=== PATIENT | female | born 1960 | race Caucasian/White ===

== ENCOUNTER → 2017-04-09 | Outpatient (CLI) | payer MEDICARE ==
[~2017-04-09] MED LIST: ASPIRIN81 M1 PO; AUGMENTIN 875 M1 TAB PO; DEPAKOTE500 MG PO; DIVALPROEX SOD250 M1 PO; LEVOFLOXACIN500 MG PO; LIPITOR20 MG PO; LISINOPRIL/HCTZ1 TA3 PO; Lopressor25 MG PO; NEURONTIN400 MG PO; NORCO 10-325 T1 EACH PO; NORCO 325 MG-51 TAB PO; PEN-VK500 MG PO; ROBAXIN750 MG PO; SYMBICORT1 AE1 INH; TRAMADOL HCL50 MG PO; TRIMOX500 MG PO; VENTOLIN H0.09 MG/AC INH
== END | disposition home or self-care (01) ==
LOC: CARD 02:06
DX: I25.89 Other forms of chronic ischemic heart disease (principal); R06.02 Shortness of breath

== ENCOUNTER → 2017-10-20 | Outpatient (CLI) | payer MEDICARE ==
[2017-10-20 09:16] LABS: BASO % 0.4 % (0.0-1.0); EOS % 0.9 % (1.0-4.0); HEMATOCRIT 33.9 % (37.0-47.0); HEMOGLOBIN 11.7 g/dl (12.0-16.0); LYMPH # 2.4 10*3/uL (1.3-4.4); LYMPH % 52.3 % (27.0-41.0); MEAN CELL VOLUME 91.4 fl (81.0-99.0); MEAN CORPUSCULAR HGB 31.5 pg (27.0-31.0); MEAN CORPUSCULAR HGB CONC 34.5 g/dl (33.0-37.0); MEAN PLATELET VOLUME 9.7 fl (9.6-12.3); MONO # 0.4 10*3/uL (0.1-1.0); MONO % 8.9 % (3.0-9.0); NEUT # 1.7 10*3/uL (2.3-7.9); NEUT % 37.3 % (47.0-73.0); PLATELET COUNT AUTOMATED 238 10*3/uL (130-400); RED BLOOD COUNT 3.71 10*6/uL (4.10-5.10); RED CELL DISTRI WIDTH 12.7 % (0-14.5); WHITE BLOOD COUNT 4.5 10*3/uL (4.8-10.8)
[2017-10-20 09:33] LABS: BILIRUBIN NEGATIVE (NEGATIVE); BLOOD 2+ (NEGATIVE); CLARITY CLOUDY (CLEAR); COLOR YELLOW (YELLOW); GLUCOSE NEGATIVE (NEGATIVE); KETONE NEGATIVE (NEGATIVE); LEUKO ESTERASE NEGATIVE (NEGATIVE); NITRITE NEGATIVE (NEGATIVE); PH 5.5 (5.0-9.0); UROBILINOGEN 0.2 E.U./dl (0.2-1.0)
[2017-10-20 09:39] LABS: ALBUMIN 4.3 gm/dl (3.1-4.5)
[2017-10-20 09:42] LABS: CREATININE 1.67 mg/dL (0.55-1.02); TOTAL PROTEIN 7.3 gm/dL (6.4-8.2)
[2017-10-20 10:08] LABS: BACTERIA 2+; EPITHELIAL CELLS 15-20
== END | disposition home or self-care (01) ==
LOC: CT 09-08 09:00 → LAB 08:28 → CT 09:00
PROVIDERS: Urology
DX: I70.0 Atherosclerosis of aorta (principal); I10 Essential (primary) hypertension; R31.9 Hematuria, unspecified; Z87.442 Personal history of urinary calculi; Z90.710 Acquired absence of both cervix and uterus; Z90.89 Acquired absence of other organs

== ENCOUNTER → 2017-11-11 | Outpatient (CLI) | payer MEDICARE | END | disposition home or self-care (01) | LOC: LAB 13:15 | DX: R31.9 Hematuria, unspecified (principal) ==

== ENCOUNTER → 2017-11-12 | Outpatient (CLI) | payer MEDICARE ==
[2017-11-12 15:36] LABS: BILIRUBIN NEGATIVE (NEGATIVE); BLOOD 1+ (NEGATIVE); CLARITY CLEAR (CLEAR); COLOR YELLOW (YELLOW); GLUCOSE NEGATIVE (NEGATIVE); KETONE NEGATIVE (NEGATIVE); LEUKO ESTERASE NEGATIVE (NEGATIVE); NITRITE NEGATIVE (NEGATIVE); UROBILINOGEN 0.2 E.U./dl (0.2-1.0)
[2017-11-12 16:06] LABS: WBC 0-2 wbc/hpf (0-5)
[2017-11-12 16:07] LABS: BACTERIA 2+; EPITHELIAL CELLS 15-20
== END | disposition home or self-care (01) ==
LOC: LAB 15:16
PROVIDERS: Urology
DX: R31.9 Hematuria, unspecified (principal)

== ENCOUNTER → 2018-07-30 | Outpatient (CLI) | payer MEDICARE | END | disposition home or self-care (01) | LOC: RAD 11:26 | DX: Z13.820 Encounter for screening for osteoporosis (principal); M81.0 Age-related osteoporosis without current pathological fracture; N95.1 Menopausal and female climacteric states; M19.90 Unspecified osteoarthritis, unspecified site; Z90.710 Acquired absence of both cervix and uterus ==

== ENCOUNTER → 2020-07-16 | Outpatient (CLI) | payer MEDICARE ==
[2020-07-16 13:17] LABS: BASO % 0.6 % (0.0-1.0); EOS # 0.1 10*3/uL (0.0-0.4); EOS % 2.8 % (1.0-4.0); HEMATOCRIT 38.5 % (37.0-47.0); LYMPH # 1.7 10*3/uL (1.3-4.4); LYMPH % 34.9 % (27.0-41.0); MEAN CORPUSCULAR HGB 29.2 pg (27.0-31.0); MEAN CORPUSCULAR HGB CONC 32.5 g/dl (33.0-37.0); MEAN PLATELET VOLUME 10.1 fl (9.6-12.3); MONO # 0.4 10*3/uL (0.1-1.0); MONO % 8.7 % (3.0-9.0); NEUT # 2.6 10*3/uL (2.3-7.9); NEUT % 52.6 % (47.0-73.0); PLATELET COUNT AUTOMATED 255 10*3/uL (130-400); RED BLOOD COUNT 4.28 10*6/uL (4.10-5.10); RED CELL DISTRI WIDTH 12.3 % (0-14.5); WHITE BLOOD COUNT 4.9 10*3/uL (4.8-10.8)
[2020-07-16 13:45] LABS: CHLORIDE 108 mmol/L (98-107); SODIUM 140 mmol/L (136-145)
[2020-07-16 14:13] LABS: ALBUMIN 3.8 gm/dl (3.1-4.5); ALKALINE PHOSPHATASE 79 U/L (45-117); BILIRUBIN, DIRECT 0.1 mg/dL (0.0-0.2); BUN 20 mg/dl (7-24); CHOLESTEROL 162 mg/dL (<200); CREATININE 0.99 mg/dL (0.55-1.02); HDL CHOLESTEROL 71 mg/dl (40-60); LDL CHOLESTEROL 64 mg/dL (9-159); SGOT/AST 13 IU/L (3-35); SGPT/ALT 20 U/L (12-78); TOTAL PROTEIN 7.4 gm/dL (6.4-8.2); TRIGLYCERIDES 136 mg/dl (<150); VALPROIC ACID (DEPAKENE) 49.5 ug/ml (50-100); VLDL CHOLESTEROL 27 mg/dL (6-40)
[2020-07-16 14:25] LABS: VITAMIN D, 25-HYDROXY 44.3 ng/mL (30-100)
== END | disposition home or self-care (01) ==
LOC: LAB 12:29
PROVIDERS: ATTEND Family Medicine
DX: Z01.812 Encounter for preprocedural laboratory examination (principal); J44.9 Chronic obstructive pulmonary disease, unspecified; R25.2 Cramp and spasm; E78.5 Hyperlipidemia, unspecified; I10 Essential (primary) hypertension; R53.83 Other fatigue; E55.9 Vitamin D deficiency, unspecified

== ENCOUNTER → 2021-09-20 | Outpatient (CLI) | payer OTHER | END | disposition home or self-care (01) | LOC: RAD 12:13 | PROVIDERS: ATTEND Nurse Practitioner Family | DX: J92.9 Pleural plaque without asbestos (principal); J18.9 Pneumonia, unspecified organism; R05.9 Cough, unspecified; I10 Essential (primary) hypertension; G47.00 Insomnia, unspecified ==

== ENCOUNTER → 2021-09-26 | Outpatient (CLI) | payer OTHER | END | disposition home or self-care (01) | LOC: CT 01:44 | PROVIDERS: ATTEND Nurse Practitioner Family | DX: J43.9 Emphysema, unspecified (principal); L92.8 Other granulomatous disorders of the skin and subcutaneous tissue; R93.89 Abnormal findings on diagnostic imaging of other specified body structures ==

== ENCOUNTER → 2021-11-01 | Outpatient (CLI) | payer OTHER | END | disposition home or self-care (01) | LOC: RAD 09:53 | PROVIDERS: ATTEND Nurse Practitioner Family | DX: M25.431 Effusion, right wrist (principal) ==

== ENCOUNTER → 2022-01-29 | Outpatient (CLI) | payer OTHER | END | disposition home or self-care (01) | LOC: RAD 14:17 | PROVIDERS: ATTEND Nurse Practitioner Family | DX: U07.1 COVID-19 (principal); J44.9 Chronic obstructive pulmonary disease, unspecified ==

== ENCOUNTER → 2023-07-17 | Outpatient (CLI) | payer OTHER ==
[2023-07-17 14:29] LABS: FREE T4 0.89 ng/dl (0.89-1.76)
[2023-07-17 14:30] LABS: VITAMIN D, 25-HYDROXY 32.5 ng/mL (30-100)
== END | disposition home or self-care (01) ==
LOC: LAB 13:37
PROVIDERS: ATTEND Psychiatry & Neurology Psychiatry
DX: Z11.3 Encounter for screening for infections with a predominantly sexual mode of transmission (principal); E78.5 Hyperlipidemia, unspecified; E55.9 Vitamin D deficiency, unspecified; I10 Essential (primary) hypertension

== ENCOUNTER 2025-05-29 17:27 | Emergency (ER) | payer OTHER ==
[~2025-05-29] VITALS: Wt 59.0 kg
[2025-05-29] MEDS ORDERED: PREDNISONE20 M1 PO (18:18)
== END 2025-05-29 18:31 | disposition home or self-care (01) ==
LOC: ED 17:27
DX: L23.7 Allergic contact dermatitis due to plants, except food (principal); F41.9 Anxiety disorder, unspecified; F32.A Depression, unspecified; I10 Essential (primary) hypertension; Z90.49 Acquired absence of other specified parts of digestive tract